=== PATIENT | female | born 1990 | race Caucasian/White ===

== ENCOUNTER 2016-10-30 13:09 | Emergency (ER) | payer OTHER ==
[~2016-10-30] VITALS: Ht 154.9 cm; Wt 64.0 kg
[~2016-10-30 13:09] MED LIST: AMBIEN5 MG PO; ATARAX,VISTARIL25 MG PO; ATARAX,VISTARIL50 MG PO; AVENTYL,PAMELOR50 MG PO; BACTRIM,SEPT1 TABLET PO; BENTYL20 MG PO; CLONAZEPAM1 MG PO; ESCITALOPRAM OX10 MG PO; FIORICET 50-301 EACH PO; FIORICET,ESG1 TABLET PO; FLEXERIL5 MG PO; HYDROXYZINE PAM25 MG PO; IBUPROFEN600 MG PO; KEFLEX500 MG PO; MACROBID100 MG PO; MEDROL DOSEPAK4 MG PO; MOTRIN600 MG PO; NOHOMEMEDS; NORCO 5/3251 TABLET PO; NORCO 7.5/321 TABLET PO; OMEPRAZOLE40 M1 PO; ONDANSETRON ODT8 MG PO; PHENERGAN25 MG PR; PREDNISONE10 MG PO; PRENATAL ONE T1 EACH PO; PROAIR HFA8.5 GM IH; PROMETHAZINE HC25 M1 PO; SERTRALINE HCL50 MG PO; TRAZODONE HCL50 MG PO; VALTREX1000 MG PO; VICODIN,LORT1 TABLET PO; XANAX1 MG PO; ZANTAC150 MG PO; ZOFRAN ODT4 MG PO; ZOFRAN ODT8 MG PO; ZOFRAN4 MG PO; ZOLOFT50 MG PO
[2016-10-30 13:11] VITALS: BP 119/79
[2016-10-30 14:34] LABS: HEMATOCRIT 40.7 % (36.0-46.0); MCH 29.5 PG (29.0-34.0); MCHC 35.1 G/DL (30.0-36.0); MCV 83.9 FL (83-99); MEAN PLAT.VOLUME 9.6 uM^3 (9.5-12.4); PLATELET COUNT 287 K/uL (156-360); RBC DIS.WIDTH-CV 12.6 % (11.8-14.6); RBC DIS.WIDTH-SD 37.7 % (39-53); RED BLOOD COUNT 4.85 M/uL (3.80-5.20); WHITE BLOOD COUNT 7.7 K/uL (4.1-10.2)
[2016-10-30 14:45] LABS: CHLORIDE 106 mEq/L (99-109); POTASSIUM 3.6 mEq/L (3.7-5.4); SODIUM 139 mEq/L (136-147)
[2016-10-30 14:47] LABS: GLUCOSE 104 mg/dL (70-99)
[2016-10-30 14:49] LABS: ANION GAP 11 MEQ/L (2-14)
[2016-10-30 14:51] LABS: GFR ESTIMATE (CALCULATED) > 59 mL/min/
[2016-10-30 14:52] LABS: UREA NITROGEN (BUN) 6 mg/dL (9-23)
[2016-10-30 15:40] LABS: TOTAL BILIRUBIN 0.4 mg/dL (0.0-1.0)
[2016-10-30 15:41] LABS: ALKALINE PHOSPHATASE 48 IU/L (3-129)
[2016-10-30 15:44] LABS: DIRECT BILIRUBIN 0.2 mg/dL (0.0-0.3)
[2016-10-30 15:45] LABS: LIPASE 7 U/L (1.0-51.0)
[2016-10-30 16:34] LABS: ADD MIUA? YES; BILIRUBIN NEGATIVE; BLOOD NEGATIVE; COLOR YELLOW ((YELLOW)); GLUCOSE (STRIP) NEGATIVE; KETONES NEGATIVE; LEUKOCYTES NEGATIVE; NITRITE NEGATIVE; PH, URINE 8.5 (5-8); PROTEIN (STRIP) 100; SPECIFIC GRAVITY 1.021 (1.000-1.030)
[2016-10-30 16:46] LABS: BACTERIA 1+; CASTS NONE SEEN /LPF; CRYSTALS NONE SEEN; EPITHELIAL CELLS 1+; MUCUS 1+; RED BLOOD CELLS 0-5 /HPF (0-5); UCUL ADDED? NO; WHITE BLOOD CELLS 0-5 /HPF (0-5)
[2016-10-30] MEDS ORDERED: PEPCID20 MG PO (17:58)
[2016-10-30] MEDS ORDERED: ZOFRAN ODT8 MG PO (17:58)
== END 2016-10-30 18:03 | disposition home or self-care (01) ==
LOC: RME 13:09 → EME 13:09 → RME 18:03
DX: K29.00 Acute gastritis without bleeding (principal); J45.909 Unspecified asthma, uncomplicated
CPT/HCPCS: 80048; 80076; 81003; 83690; 85027; 99281; 99284

== ENCOUNTER 2017-06-05 17:48 | Emergency (ER) | payer OTHER ==
[~2017-06-05] VITALS: Ht 157.5 cm; Wt 62.5 kg
[~2017-06-05 17:48] MED LIST changes: +PEPCID20 MG PO
[2017-06-05 19:02] LABS: HEMATOCRIT 42.2 % (36.0-46.0); MCHC 34.6 G/DL (30.0-36.0); MCV 86.8 FL (83-99); PLATELET COUNT 237 K/uL (156-360); RBC DIS.WIDTH-CV 11.7 % (11.8-14.6); RBC DIS.WIDTH-SD 37.5 % (39-53); RED BLOOD COUNT 4.86 M/uL (3.80-5.20); WHITE BLOOD COUNT 9.8 K/uL (4.1-10.2)
[2017-06-05 19:13] LABS: CHLORIDE 104 mEq/L (99-109); POTASSIUM 3.8 mEq/L (3.7-5.4); SODIUM 139 mEq/L (136-147)
[2017-06-05 19:15] LABS: GLUCOSE 88 mg/dL (70-99)
[2017-06-05 19:16] LABS: ANION GAP 18 MEQ/L (2-14)
[2017-06-05 19:19] LABS: GFR ESTIMATE (CALCULATED) > 59 mL/min/
[2017-06-05 19:20] LABS: UREA NITROGEN (BUN) 5 mg/dL (9-23)
[2017-06-05 19:48] LABS: QUANTITATIVE HCG 33098.8 MIU/ML
[2017-06-05 20:50] LABS: ADD MIUA? YES; BILIRUBIN NEGATIVE; BLOOD NEGATIVE; COLOR YELLOW ((YELLOW)); GLUCOSE (STRIP) NEGATIVE; KETONES 20; LEUKOCYTES SMALL; NITRITE NEGATIVE; PROTEIN (STRIP) 30; SPECIFIC GRAVITY 1.017 (1.000-1.030); UROBILINOGEN 0.2 MG/DL (0.2-1.0)
[2017-06-05] MEDS ORDERED: ZOFRAN ODT8 MG PO (20:55)
[2017-06-05 21:15] LABS: BACTERIA 1+ /HPF; CRYSTALS PRESENT; EPITHELIAL CELLS 1+ /HPF; MUCUS NONE SEEN /LPF; RED BLOOD CELLS 0-5 /HPF (0-5); UCUL ADDED? YES
[2017-06-05 21:16] LABS: AMORPHOUS URATES CRYSTALS 4+
[2017-06-05 21:29] VITALS: BP 160/89
[2017-06-06] MEDS ORDERED: VITAMIN B-625 MG PO (09:20)
== END 2017-06-05 21:30 | disposition home or self-care (01) ==
LOC: EME 17:48
DX: O21.0 Mild hyperemesis gravidarum (principal); O99.89 Other specified diseases and conditions complicating pregnancy, childbirth and the puerperium; R51 Headache; O99.511 Diseases of the respiratory system complicating pregnancy, first trimester; J45.909 Unspecified asthma, uncomplicated; O99.341 Other mental disorders complicating pregnancy, first trimester; F32.9 Major depressive disorder, single episode, unspecified; F41.9 Anxiety disorder, unspecified
CPT/HCPCS: 80048; 81003; 84702; 85027; 87086; 99281; 99284

== ENCOUNTER 2017-06-06 09:00 | Emergency (ER) | payer OTHER ==
[~2017-06-06] VITALS: Ht 157.5 cm; Wt 61.8 kg
[2017-06-06] MEDS ORDERED: VITAMIN B-625 MG PO (09:20)
[2017-06-06 09:46] LABS: EOSINOPHIL (%) 0.4 % (0-5); HEMATOCRIT 42.3 % (36.0-46.0); IMMATURE GRANULOCYTE (%) 0.4 % (0.0-0.7); INSTRUMENT ABS NEUTROPHIL CT 8.6 K/uL; LYMPHOCYTE COUNT 1.3 K/uL (1.0-2.8); MCH 30.3 PG (29.0-34.0); MCHC 35.2 G/DL (30.0-36.0); MCV 86.2 FL (83-99); MEAN PLAT.VOLUME 9.9 uM^3 (9.5-12.4); MONOCYTE (%) 4.6 % (3-12); MONOCYTE COUNT 0.5 K/uL (0-0.8); NEUTROPHIL (%) 81.6 % (45-76); NEUTROPHIL COUNT 8.6 K/uL (1.8-6.4); PLATELET COUNT 230 K/uL (156-360); RBC DIS.WIDTH-CV 11.6 % (11.8-14.6); RBC DIS.WIDTH-SD 36.3 % (39-53); RED BLOOD COUNT 4.91 M/uL (3.80-5.20); WHITE BLOOD COUNT 10.5 K/uL (4.1-10.2)
[2017-06-06 09:54] LABS: CHLORIDE 104 mEq/L (99-109); POTASSIUM 3.6 mEq/L (3.7-5.4); SODIUM 136 mEq/L (136-147)
[2017-06-06 09:55] LABS: GLUCOSE 87 mg/dL (70-99)
[2017-06-06 09:57] LABS: ANION GAP 10 MEQ/L (2-14)
[2017-06-06 09:59] LABS: GFR ESTIMATE (CALCULATED) > 59 mL/min/
[2017-06-06 10:00] LABS: UREA NITROGEN (BUN) 7 mg/dL (9-23)
[2017-06-06 10:34] LABS: QUANTITATIVE HCG 37684.1 MIU/ML
[2017-06-06 10:54] LABS: ADD MIUA? YES; BILIRUBIN NEGATIVE; BLOOD NEGATIVE; COLOR YELLOW ((YELLOW)); GLUCOSE (STRIP) NEGATIVE; KETONES 20; LEUKOCYTES LARGE; NITRITE NEGATIVE; PROTEIN (STRIP) 30; SPECIFIC GRAVITY 1.012 (1.000-1.030); UROBILINOGEN 0.2 MG/DL (0.2-1.0)
[2017-06-06 11:10] LABS: BACTERIA RARE /HPF; EPITHELIAL CELLS 2+ /HPF; MUCUS TRACE /LPF; RED BLOOD CELLS 0-5 /HPF (0-5)
[2017-06-06 12:44] VITALS: BP 127/69
[2017-06-07] MEDS ORDERED: PRENATAL TABLE1 EAC3 PO (11:57)
[2017-06-07] MEDS ORDERED: UNISOM50 MG PO (11:58)
== END 2017-06-06 12:46 | disposition home or self-care (01) ==
LOC: EME 09:00
PROVIDERS: Emergency Medicine
DX: O21.9 Vomiting of pregnancy, unspecified (principal); O26.891 Other specified pregnancy related conditions, first trimester; R11.0 Nausea; Z87.442 Personal history of urinary calculi; J45.909 Unspecified asthma, uncomplicated; Z3A.08 8 weeks gestation of pregnancy
CPT/HCPCS: 80048; 81003; 84702; 85025; 99281; 99285; J2405; J7030

== ENCOUNTER 2017-06-07 06:55 | Inpatient (IN) | payer OTHER ==
[~2017-06-07] VITALS: Ht 157.5 cm; Wt 60.1 kg
[~2017-06-07 06:55] MED LIST changes: +VITAMIN B-625 MG PO
[2017-06-07 08:07] LABS: ADD MIUA? YES; BILIRUBIN NEGATIVE; BLOOD SMALL; COLOR YELLOW ((YELLOW)); GLUCOSE (STRIP) NEGATIVE; KETONES 80; LEUKOCYTES LARGE; NITRITE NEGATIVE; PROTEIN (STRIP) 30; SPECIFIC GRAVITY 1.018 (1.000-1.030); UROBILINOGEN 0.2 MG/DL (0.2-1.0)
[2017-06-07 08:15] LABS: BACTERIA RARE /HPF; EPITHELIAL CELLS 1+ /HPF; MUCUS TRACE /LPF; RED BLOOD CELLS 0-5 /HPF (0-5); WHITE BLOOD CELLS 30-40 /HPF (0-5)
[2017-06-07 08:18] LABS: AMPHETAMINE NEGATIVE (500 ng/mL); BARBITURATES NEGATIVE (200 ng/mL); BENZODIAZEPINES NEGATIVE (150 ng/mL); COCAINE NEGATIVE (150 ng/mL); INTERNAL CONTROLS VALID? YES; METHADONE NEGATIVE (200 ng/mL); METHAMPHETAMINE NEGATIVE (500 ng/mL); OPIATES (MORPHINE) NEGATIVE (100 ng/mL); OXYCODONE NEGATIVE (100 ng/mL); PHENCYCLIDINE NEGATIVE (25 ng/mL); PROPOXYPHENE NEGATIVE (300 ng/mL); THC CANNABINOIDS PRESUMPTIVE POSITIVE (50 ng/mL); TRICYCLIC ANTIDEPRESSANTS NEGATIVE (300 ng/mL)
[2017-06-07 08:19] LABS: ADD MEDTOX COMMENT Y
[2017-06-07] MEDS ORDERED: PRENATAL TABLE1 EAC3 PO (11:57)
[2017-06-07] MEDS ORDERED: UNISOM50 MG PO (11:58)
[2017-06-07 12:51] VITALS: BP 133/80
[2017-06-07 15:41] VITALS: BP 124/63
[2017-06-07 16:29] LABS: ANION GAP 9 MEQ/L (2-14); CHLORIDE 105 MEQ/L (99-109); GFR ESTIMATE (CALCULATED) > 59 mL/min/; GLUCOSE 90 mg/dL (70-99); POTASSIUM 4.1 MEQ/L (3.7-5.4); SAMPLE HEMOLYSIS CHECK 0; SAMPLE ICTERIC CHECK 0; SAMPLE LIPEMIA CHECK 0; SODIUM 139 MEQ/L (136-147); UREA NITROGEN (BUN) 7 mg/dL (9-23)
[2017-06-07 17:16] LABS: QUANTITATIVE HCG 40540.2 MIU/ML
[2017-06-08 07:52] VITALS: BP 137/67
[2017-06-08 15:41] VITALS: BP 124/77
[2017-06-09 07:55] VITALS: BP 113/66
[2017-06-09 15:28] VITALS: BP 125/69
[2017-06-10 07:49] VITALS: BP 110/57
[2017-06-10 16:19] VITALS: BP 123/78
[2017-06-11 08:59] VITALS: BP 123/56
[2017-06-11 16:43] VITALS: BP 116/53
[2017-06-12 07:50] VITALS: BP 104/57
[2017-06-12] MEDS ORDERED: LORAZEPAM1 MG PO (10:29)
[2017-06-12] MEDS ORDERED: PROZAC20 MG PO (10:29)
[2017-06-12] MEDS ORDERED: PROMETHAZINE HC25 M1 PO (10:30)
[2017-06-12] MEDS ORDERED: NITROFURANTOIN100 M3 PO (10:30)
== END 2017-06-12 10:46 | disposition home or self-care (01) | DRG 885 ==
LOC: EME 06:55 → ENRESERV 11:53 → CANRESERV 11:53 → EME 12:13 → 1WEST 12:29 → EDOF 12:29 → 1WEST 12:42 → ENRESERV 12:42 → 1WEST 06-12 10:46
PROVIDERS: Nurse Practitioner Family; Psychiatry & Neurology Psychiatry
DX: F33.1 Major depressive disorder, recurrent, moderate (principal); R45.851 Suicidal ideations; F43.20 Adjustment disorder, unspecified; F41.0 Panic disorder [episodic paroxysmal anxiety]; F41.1 Generalized anxiety disorder; F12.90 Cannabis use, unspecified, uncomplicated; N39.0 Urinary tract infection, site not specified; E86.0 Dehydration; J45.909 Unspecified asthma, uncomplicated; G43.909 Migraine, unspecified, not intractable, without status migrainosus; R63.4 Abnormal weight loss; Z91.19 Patient's noncompliance with other medical treatment and regimen; Z3A.01 Less than 8 weeks gestation of pregnancy; Z87.442 Personal history of urinary calculi
CPT/HCPCS: 76801; 80048; 81003; 84443; 84702; 84999; 85025; 85027; 87086; 90839; 97150 GO; 97165 GO; 99281; 99284; 99285; J2405; J2550; J7030; Q0169

== ENCOUNTER 2017-07-06 19:21 | Emergency (ER) | payer OTHER ==
[~2017-07-06] VITALS: Ht 154.9 cm; Wt 59.9 kg
[~2017-07-06 19:21] MED LIST changes: +LORAZEPAM1 MG PO; +NITROFURANTOIN100 M3 PO; +PRENATAL TABLE1 EAC3 PO; +PROZAC20 MG PO; +UNISOM50 MG PO
[2017-07-06 19:26] VITALS: BP 121/72
[2017-07-06 20:26] LABS: HEMATOCRIT 37.2 % (36.0-46.0); MCH 29.6 PG (29.0-34.0); MCHC 34.7 G/DL (30.0-36.0); MCV 85.3 FL (83-99); MEAN PLAT.VOLUME 9.8 uM^3 (9.5-12.4); PLATELET COUNT 230 K/uL (156-360); RBC DIS.WIDTH-CV 11.9 % (11.8-14.6); RBC DIS.WIDTH-SD 36.9 % (39-53); RED BLOOD COUNT 4.36 M/uL (3.80-5.20); WHITE BLOOD COUNT 8.5 K/uL (4.1-10.2)
[2017-07-06 20:38] LABS: CHLORIDE 102 mEq/L (99-109); POTASSIUM 3.1 mEq/L (3.7-5.4); SODIUM 137 mEq/L (136-147)
[2017-07-06 20:40] LABS: GLUCOSE 78 mg/dL (70-99)
[2017-07-06 20:41] LABS: ANION GAP 12 MEQ/L (2-14)
[2017-07-06 20:42] LABS: TOTAL BILIRUBIN 0.5 mg/dL (0.0-1.0)
[2017-07-06 20:43] LABS: ALKALINE PHOSPHATASE 43 IU/L (3-129)
[2017-07-06 20:44] LABS: GFR ESTIMATE (CALCULATED) > 59 mL/min/
[2017-07-06 20:45] LABS: ADD MIUA? YES; BILIRUBIN NEGATIVE; BLOOD SMALL; COLOR YELLOW ((YELLOW)); GLUCOSE (STRIP) NEGATIVE; KETONES 80; LEUKOCYTES MODERATE; NITRITE NEGATIVE; PROTEIN (STRIP) NEGATIVE; SPECIFIC GRAVITY 1.015 (1.000-1.030)
[2017-07-06 20:45] LABS: UREA NITROGEN (BUN) 6 mg/dL (9-23)
[2017-07-06 21:00] LABS: BACTERIA 1+ /HPF; EPITHELIAL CELLS 2+ /HPF; MUCUS RARE /LPF; RED BLOOD CELLS 0-5 /HPF (0-5); UCUL ADDED? YES
[2017-07-06 21:01] LABS: CASTS NONE SEEN /LPF; CRYSTALS NONE SEEN
[2017-07-06] MEDS ORDERED: REGLAN10 MG PO (23:24)
== END 2017-07-06 23:37 | disposition left against medical advice (07) ==
LOC: EME 19:21
DX: O21.9 Vomiting of pregnancy, unspecified (principal); Z87.442 Personal history of urinary calculi; Z3A.11 11 weeks gestation of pregnancy; Z53.20 Procedure and treatment not carried out because of patient's decision for unspecified reasons
CPT/HCPCS: 76770; 80053; 81003; 84702; 85027; 87086; 99281; 99284; J1200; J2765; J7030

== ENCOUNTER 2017-07-11 10:44 | Emergency (ER) | payer OTHER ==
[~2017-07-11] VITALS: Ht 154.9 cm; Wt 58.4 kg
[~2017-07-11 10:44] MED LIST changes: +REGLAN10 MG PO
[2017-07-11 15:10] LABS: ADD MIUA? YES; BILIRUBIN NEGATIVE; BLOOD NEGATIVE; COLOR COLORLESS ((YELLOW)); GLUCOSE (STRIP) NEGATIVE; KETONES 20; LEUKOCYTES SMALL; NITRITE NEGATIVE; PROTEIN (STRIP) NEGATIVE; SPECIFIC GRAVITY 1.005 (1.000-1.030); UROBILINOGEN 0.2 MG/DL (0.2-1.0)
[2017-07-11 15:14] LABS: BACTERIA RARE /HPF; EPITHELIAL CELLS RARE /HPF; MUCUS NONE SEEN /LPF; RED BLOOD CELLS 0-5 /HPF (0-5); WHITE BLOOD CELLS 0-5 /HPF (0-5)
[2017-07-11] MEDS ORDERED: ZOFRAN ODT4 MG PO (15:56)
[2017-07-11] MEDS ORDERED: PHENERGAN25 MG PR (15:56)
[2017-07-11 16:20] VITALS: BP 136/91
== END 2017-07-11 16:21 | disposition home or self-care (01) ==
LOC: EME 10:44
PROVIDERS: Nurse Practitioner Family
DX: O21.1 Hyperemesis gravidarum with metabolic disturbance (principal); E86.0 Dehydration; Z3A.12 12 weeks gestation of pregnancy; Z87.442 Personal history of urinary calculi
CPT/HCPCS: 81003; 99281; 99283; J2405; J7030

== ENCOUNTER 2017-08-11 13:15 | Outpatient (CLI) | payer OTHER ==
[~2017-08-11] VITALS: Ht 157.5 cm; Wt 57.6 kg
[2017-08-11 13:41] VITALS: BP 117/65
[2017-08-11 14:05] LABS: EOSINOPHIL (%) 1.9 % (0-5); EOSINOPHIL COUNT 0.2 K/uL (0-0.3); HEMATOCRIT 32.7 % (36.0-46.0); IMMATURE GRANULOCYTE (%) 0.6 % (0.0-0.7); IMMATURE GRANULOCYTE COUNT 0.1 K/uL; LYMPHOCYTE COUNT 1.6 K/uL (1.0-2.8); MCH 29.9 PG (29.0-34.0); MCHC 34.9 G/DL (30.0-36.0); MCV 85.8 FL (83-99); MONOCYTE (%) 5.1 % (3-12); MONOCYTE COUNT 0.5 K/uL (0-0.8); NEUTROPHIL (%) 75.3 % (45-76); PLATELET COUNT 179 K/uL (156-360); RBC DIS.WIDTH-CV 12.2 % (11.8-14.6); RBC DIS.WIDTH-SD 38.4 % (39-53); RED BLOOD COUNT 3.81 M/uL (3.80-5.20); WHITE BLOOD COUNT 9.3 K/uL (4.1-10.2)
[2017-08-11 14:35] LABS: ALKALINE PHOSPHATASE 35 IU/L (3-129); ANION GAP 8 MEQ/L (2-14); CHLORIDE 105 MEQ/L (99-109); GFR ESTIMATE (CALCULATED) > 59 mL/min/; GLUCOSE 91 mg/dL (70-99); POTASSIUM 3.4 MEQ/L (3.7-5.4); SAMPLE HEMOLYSIS CHECK 0; SAMPLE ICTERIC CHECK 0; SAMPLE LIPEMIA CHECK 0; SODIUM 136 MEQ/L (136-147); TOTAL BILIRUBIN 0.3 MG/DL (0.0-1.0); UREA NITROGEN (BUN) 5 mg/dL (9-23)
[2017-08-11 15:40] LABS: ADD MIUA? YES; BILIRUBIN NEGATIVE; BLOOD NEGATIVE; COLOR YELLOW ((YELLOW)); GLUCOSE (STRIP) NEGATIVE; KETONES NEGATIVE; LEUKOCYTES TRACE; NITRITE NEGATIVE; PROTEIN (STRIP) NEGATIVE; SPECIFIC GRAVITY 1.008 (1.000-1.030); UROBILINOGEN 0.2 MG/DL (0.2-1.0)
[2017-08-11 15:44] LABS: BACTERIA RARE /HPF; EPITHELIAL CELLS RARE /HPF; MUCUS 1+ /LPF; RED BLOOD CELLS 0-5 /HPF (0-5); UCUL ADDED? NO; WHITE BLOOD CELLS 0-5 /HPF (0-5)
== END 2017-08-11 16:43 | disposition home or self-care (01) ==
LOC: LDRP-OP 13:15 → 2WEST 13:16
PROVIDERS: Advanced Practice Midwife
DX: O21.0 Mild hyperemesis gravidarum (principal); O99.312 Alcohol use complicating pregnancy, second trimester; O99.322 Drug use complicating pregnancy, second trimester; F12.90 Cannabis use, unspecified, uncomplicated; O99.342 Other mental disorders complicating pregnancy, second trimester; F41.9 Anxiety disorder, unspecified; Z3A.00 Weeks of gestation of pregnancy not specified; F31.9 Bipolar disorder, unspecified; R45.851 Suicidal ideations; J45.909 Unspecified asthma, uncomplicated
CPT/HCPCS: 80053; 81003; 84443; 85025; G0378; J2405; J7120

== ENCOUNTER 2017-11-07 20:11 | Outpatient (CLI) | payer OTHER ==
[2017-11-07 20:23] VITALS: BP 113/57
[2017-11-07 21:24] LABS: BASOPHIL (%) 0.3 % (0-1); EOSINOPHIL (%) 0.1 % (0-5); HEMATOCRIT 32.2 % (36.0-46.0); HEMOGLOBIN 11.3 G/DL (11.9-15.5); LYMPHOCYTE (%) 3.8 % (15-42); LYMPHOCYTE COUNT 0.3 K/uL (1.0-2.8); MCH 30.7 PG (29.0-34.0); MCHC 35.1 G/DL (30.0-36.0); MCV 87.5 FL (83-99); MONOCYTE (%) 5.4 % (3-12); MONOCYTE COUNT 0.5 K/uL (0-0.8); NEUTROPHIL (%) 85.4 % (45-76); NEUTROPHIL COUNT 7.7 K/uL (1.8-6.4); PLATELET COUNT 156 K/uL (156-360); RBC DIS.WIDTH-CV 12.7 % (11.8-14.6); RED BLOOD COUNT 3.68 M/uL (3.80-5.20)
[2017-11-07 21:33] LABS: ALBUMIN 3.1 G/DL (3.2-4.8); CHLORIDE 103 MEQ/L (99-109); SODIUM 134 MEQ/L (136-147); TOTAL BILIRUBIN 0.4 MG/DL (0.0-1.0)
[2017-11-07 21:39] LABS: ALKALINE PHOSPHATASE 77 IU/L (3-129); ALT (GPT) 19 IU/L (3-49); AST (GOT) 21 IU/L (2-34); CREATININE 0.5 MG/DL (0.6-1.3); GFR ESTIMATE (CALCULATED) > 59 mL/min/; GLUCOSE 83 mg/dL (70-99); UREA NITROGEN (BUN) 3 mg/dL (9-23)
[2017-11-07 22:10] LABS: APPEARANCE CLEAR ((CLEAR)); BILIRUBIN NEGATIVE; BLOOD NEGATIVE; COLOR STRAW ((YELLOW)); GLUCOSE (STRIP) NEGATIVE; KETONES 20; LEUKOCYTES NEGATIVE; NITRITE NEGATIVE; PROTEIN (STRIP) NEGATIVE; SPECIFIC GRAVITY 1.004 (1.000-1.030); UROBILINOGEN 0.2 MG/DL (0.2-1.0)
[2017-11-07 22:36] LABS: COCAINE NEGATIVE (150 ng/mL); METHAMPHETAMINE NEGATIVE (500 ng/mL); OPIATES (MORPHINE) NEGATIVE (100 ng/mL); PHENCYCLIDINE NEGATIVE (25 ng/mL); THC CANNABINOIDS PRESUMPTIVE POSITIVE (50 ng/mL)
[2017-11-07 22:37] LABS: AMPHETAMINE NEGATIVE (500 ng/mL); BARBITURATES NEGATIVE (200 ng/mL); BENZODIAZEPINES NEGATIVE (150 ng/mL); BUPRENORPHINE NEGATIVE (10 ng/mL); METHADONE NEGATIVE (200 ng/mL); OXYCODONE NEGATIVE (100 ng/mL); PROPOXYPHENE NEGATIVE (300 ng/mL); TRICYCLIC ANTIDEPRESSANTS NEGATIVE (300 ng/mL)
[2017-11-07 22:43] VITALS: BP 107/53
[2017-11-07 22:51] LABS: GROUP B STREP NEGATIVE (NEGATIVE)
[2017-11-08] MEDS ORDERED: TAMIFLU75 MG PO (00:13)
[2017-11-08] MEDS ORDERED: CLEOCIN300 MG PO (00:14)
[2017-11-08] MEDS ORDERED: TYLENOL REGULA325 MG PO (00:16)
== END 2017-11-08 00:30 | disposition home or self-care (01) ==
LOC: LDRP-OP 20:11 → 2WEST 20:13 → LDRP-OP 02-26 22:22
PROVIDERS: Advanced Practice Midwife
DX: O98.513 Other viral diseases complicating pregnancy, third trimester (principal); B33.8 Other specified viral diseases; J11.1 Influenza due to unidentified influenza virus with other respiratory manifestations; Z3A.28 28 weeks gestation of pregnancy; R00.0 Tachycardia, unspecified
CPT/HCPCS: 59025; 80053; 81003; 82731; 84999; 85025; 86850; 86900; 86901; 87086; 87502; 87653; G0378; J7120

== ENCOUNTER 2017-11-15 06:42 | Emergency (ER) | payer OTHER ==
[~2017-11-15] VITALS: Ht 154.9 cm; Wt 61.4 kg
[~2017-11-15 06:42] MED LIST changes: +CLEOCIN300 MG PO; +TAMIFLU75 MG PO; +TYLENOL REGULA325 MG PO
[2017-11-15 07:34] LABS: HEMATOCRIT 36.3 % (36.0-46.0); HEMOGLOBIN 12.6 G/DL (11.9-15.5); MCH 30.2 PG (29.0-34.0); MCHC 34.7 G/DL (30.0-36.0); MCV 87.1 FL (83-99); RBC DIS.WIDTH-SD 40.7 % (39-53); RED BLOOD COUNT 4.17 M/uL (3.80-5.20)
[2017-11-15 08:04] LABS: CHLORIDE 104 MEQ/L (99-109); POTASSIUM 3.1 MEQ/L (3.7-5.4); SODIUM 140 MEQ/L (136-147)
[2017-11-15 08:10] LABS: CREATININE 0.6 MG/DL (0.6-1.3); GFR ESTIMATE (CALCULATED) > 59 mL/min/; GLUCOSE 84 mg/dL (70-99); UREA NITROGEN (BUN) 7 mg/dL (9-23)
[2017-11-15 08:21] LABS: ABS NEUTROPHIL COUNT 7.3; ANISOCYTOSIS 1+; ATYPICAL LYMPHOCYTE 1.7 %; BAND NEUTROPHILS 4.4 % (0-8.0); EOSINOPHIL ABS CT 0.2; EOSINOPHILS 1.8 % (0-5.0); LYMPHOCYTES 13.9 % (15.0-45.0); MACROCYTES 1+; MICROCYTOSIS 1+; MONOCYTES 1.7 % (0-9.0); PLAT.SUFFICIENCY ADEQUATE; POLYCHROMASIA 1+; SEG.NEUTROPHILS 76.5 % (46.0-76.0)
[2017-11-15 08:22] LABS: PLATELET COUNT 220 K/uL (156-360)
[2017-11-15 08:28] LABS: APPEARANCE CLOUDY ((CLEAR)); BILIRUBIN SMALL; BLOOD NEGATIVE; COLOR AMBER ((YELLOW)); GLUCOSE (STRIP) NEGATIVE; KETONES 80; LEUKOCYTES LARGE; NITRITE NEGATIVE; PROTEIN (STRIP) 100
[2017-11-15 08:45] LABS: BACTERIA 3+ /HPF; EPITHELIAL CELLS 1+ /HPF; MUCUS NONE SEEN /LPF; RED BLOOD CELLS 0-5 /HPF (0-5); WHITE BLOOD CELLS 40-50 /HPF (0-5)
[2017-11-15] MEDS ORDERED: ZOFRAN4 MG PO (10:16)
[2017-11-15] MEDS ORDERED: MACROBID100 MG PO (10:16)
[2017-11-15 10:48] VITALS: BP 110/64
== END 2017-11-15 10:49 | disposition home or self-care (01) ==
LOC: EME 06:42
PROVIDERS: Emergency Medicine
DX: O21.9 Vomiting of pregnancy, unspecified (principal); O23.43 Unspecified infection of urinary tract in pregnancy, third trimester; O99.89 Other specified diseases and conditions complicating pregnancy, childbirth and the puerperium; H53.8 Other visual disturbances; R42 Dizziness and giddiness; Z87.442 Personal history of urinary calculi; Z3A.29 29 weeks gestation of pregnancy
CPT/HCPCS: 80048; 81003; 85025; 87086; 99281; 99285; J2405; J7030

== ENCOUNTER 2018-01-22 08:09 | Inpatient (IN) | payer OTHER ==
[~2018-01-22] VITALS: Ht 157.5 cm; Wt 68.1 kg
[2018-01-22] VITALS (19 sets, daily range): BP systolic 120–150; BP diastolic 70–102
[2018-01-22 09:03] LABS: BASOPHIL (%) 0.3 % (0-1); EOSINOPHIL (%) 1.1 % (0-5); EOSINOPHIL COUNT 0.1 K/uL (0-0.3); HEMATOCRIT 34.4 % (36.0-46.0); HEMOGLOBIN 11.2 G/DL (11.9-15.5); IMMATURE GRANULOCYTE (%) 1.1 % (0.0-0.7); LYMPHOCYTE (%) 16.7 % (15-42); LYMPHOCYTE COUNT 1.5 K/uL (1.0-2.8); MCH 28.4 PG (29.0-34.0); MCHC 32.6 G/DL (30.0-36.0); MCV 87.3 FL (83-99); MONOCYTE (%) 5.6 % (3-12); MONOCYTE COUNT 0.5 K/uL (0-0.8); NEUTROPHIL (%) 75.2 % (45-76); NEUTROPHIL COUNT 6.8 K/uL (1.8-6.4); PLATELET COUNT 209 K/uL (156-360); RBC DIS.WIDTH-CV 13.3 % (11.8-14.6); RED BLOOD COUNT 3.94 M/uL (3.80-5.20)
[2018-01-22 09:10] LABS: PTT 25.2 SEC (25-37)
[2018-01-22] MEDS ORDERED: PRENATAL GUMMI1 EACH PO (09:29)
[2018-01-22] MEDS ORDERED: UNISOM50 MG PO (09:29)
[2018-01-22 09:33] LABS: ALBUMIN 3.1 G/DL (3.2-4.8); CHLORIDE 106 MEQ/L (99-109); POTASSIUM 3.9 MEQ/L (3.7-5.4); SODIUM 138 MEQ/L (136-147); TOTAL BILIRUBIN 0.4 MG/DL (0.0-1.0)
[2018-01-22 09:39] LABS: ALKALINE PHOSPHATASE 142 IU/L (3-129); ALT (GPT) 9 IU/L (3-49); AST (GOT) 10 IU/L (2-34); CREATININE 0.5 MG/DL (0.6-1.3); GFR ESTIMATE (CALCULATED) > 59 mL/min/; GLUCOSE 100 mg/dL (70-99); TOTAL PROTEIN 5.8 G/DL (6.4-8.3); UREA NITROGEN (BUN) 6 mg/dL (9-23); URIC ACID 4.3 mg/dL (3.1-9.2)
[2018-01-22 09:54] LABS: FIBRINOGEN 405 mg/dL (150-450)
[2018-01-22 10:08] LABS: APPEARANCE CLEAR ((CLEAR)); BILIRUBIN NEGATIVE; BLOOD NEGATIVE; COLOR YELLOW ((YELLOW)); GLUCOSE (STRIP) NEGATIVE; KETONES NEGATIVE; LEUKOCYTES NEGATIVE; NITRITE NEGATIVE; PROTEIN (STRIP) NEGATIVE; SPECIFIC GRAVITY 1.008 (1.000-1.030); UCUL ADDED? NO; UROBILINOGEN 0.2 MG/DL (0.2-1.0)
[2018-01-22 10:22] LABS: AMPHETAMINE NEGATIVE (500 ng/mL); BARBITURATES NEGATIVE (200 ng/mL); BENZODIAZEPINES NEGATIVE (150 ng/mL); BUPRENORPHINE NEGATIVE (10 ng/mL); COCAINE NEGATIVE (150 ng/mL); METHADONE NEGATIVE (200 ng/mL); METHAMPHETAMINE NEGATIVE (500 ng/mL); OPIATES (MORPHINE) NEGATIVE (100 ng/mL); OXYCODONE NEGATIVE (100 ng/mL); PHENCYCLIDINE NEGATIVE (25 ng/mL); PROPOXYPHENE NEGATIVE (300 ng/mL); THC CANNABINOIDS NEGATIVE (50 ng/mL); TRICYCLIC ANTIDEPRESSANTS NEGATIVE (300 ng/mL)
[2018-01-22 10:38] LABS: UR CREATININE CONCENTRATION 49.2 MG/DL
[2018-01-22 23:58] LABS: BASOPHIL (%) 0.3 % (0-1); EOSINOPHIL (%) 0.6 % (0-5); EOSINOPHIL COUNT 0.1 K/uL (0-0.3); HEMATOCRIT 28.8 % (36.0-46.0); HEMOGLOBIN 9.6 G/DL (11.9-15.5); IMMATURE GRANULOCYTE (%) 1.1 % (0.0-0.7); LYMPHOCYTE (%) 11.5 % (15-42); LYMPHOCYTE COUNT 1.8 K/uL (1.0-2.8); MCH 29.3 PG (29.0-34.0); MCHC 33.3 G/DL (30.0-36.0); MCV 87.8 FL (83-99); MONOCYTE COUNT 0.9 K/uL (0-0.8); NEUTROPHIL (%) 80.5 % (45-76); NEUTROPHIL COUNT 12.6 K/uL (1.8-6.4); PLATELET COUNT 190 K/uL (156-360); RBC DIS.WIDTH-CV 13.4 % (11.8-14.6); RBC DIS.WIDTH-SD 43.1 % (39-53); RED BLOOD COUNT 3.28 M/uL (3.80-5.20); WHITE BLOOD COUNT 15.6 K/uL (4.1-10.2)
[2018-01-23 07:04] LABS: BASOPHIL (%) 0.2 % (0-1); EOSINOPHIL (%) 0.8 % (0-5); EOSINOPHIL COUNT 0.1 K/uL (0-0.3); HEMATOCRIT 26.7 % (36.0-46.0); HEMOGLOBIN 8.8 G/DL (11.9-15.5); IMMATURE GRANULOCYTE (%) 1.1 % (0.0-0.7); LYMPHOCYTE (%) 14.7 % (15-42); LYMPHOCYTE COUNT 1.8 K/uL (1.0-2.8); MCH 29.2 PG (29.0-34.0); MCV 88.7 FL (83-99); MONOCYTE (%) 5.7 % (3-12); MONOCYTE COUNT 0.7 K/uL (0-0.8); NEUTROPHIL (%) 77.5 % (45-76); NEUTROPHIL COUNT 9.2 K/uL (1.8-6.4); NRBC (%) 0.3 /100 WBC (0-0); PLATELET COUNT 180 K/uL (156-360); RBC DIS.WIDTH-CV 13.5 % (11.8-14.6); RBC DIS.WIDTH-SD 43.3 % (39-53); RED BLOOD COUNT 3.01 M/uL (3.80-5.20); WHITE BLOOD COUNT 11.9 K/uL (4.1-10.2)
[2018-01-23 07:25] VITALS: BP 118/66
[2018-01-23 14:29] VITALS: BP 133/73
[2018-01-24 07:05] VITALS: BP 127/68
[2018-01-24] MEDS ORDERED: IBUPROFEN800 MG PO (09:23)
[2018-01-24] MEDS ORDERED: DOCUSATE SODIU100 MG PO (09:24)
[2018-01-24] MEDS ORDERED: HEMOCYTE324 MG PO (09:24)
[2018-01-24] MEDS ORDERED: SPRINTEC1 EACH PO (09:31)
== END 2018-01-24 12:45 | disposition home or self-care (01) | DRG 775 ==
LOC: LDRP-OP → 2WEST 08:10 → LDRP-OP 20:17 → 2WEST 01-24 12:45 → LDRP-OP 02-26 01:26
PROVIDERS: Advanced Practice Midwife
PROC: 10907ZC Drainage of Amniotic Fluid, Therapeutic from Products of Conception, Via Natural or Artificial Opening (ICD-10-PCS; principal; 2018-01-22)
PROC: 10E0XZZ Delivery of Products of Conception, External Approach (ICD-10-PCS; principal; 2018-01-22)
PROC: 0UQGXZZ Repair Vagina, External Approach (ICD-10-PCS; 2018-01-23)
DX: O71.4 Obstetric high vaginal laceration alone (principal); O13.4 Gestational [pregnancy-induced] hypertension without significant proteinuria, complicating childbirth; D62 Acute posthemorrhagic anemia; Z37.0 Single live birth; Z3A.39 39 weeks gestation of pregnancy; O99.344 Other mental disorders complicating childbirth; J45.909 Unspecified asthma, uncomplicated; O99.52 Diseases of the respiratory system complicating childbirth; O99.324 Drug use complicating childbirth; F41.9 Anxiety disorder, unspecified; F12.90 Cannabis use, unspecified, uncomplicated; O99.02 Anemia complicating childbirth
CPT/HCPCS: 80053; 81003; 82570; 84156; 84550; 85025; 85025 91; 85384; 85610; 85730; J7120; Q0177